=== PATIENT | female | born 1955 ===

== ENCOUNTER → 2023-12-10 09:48 | Outpatient (BNVA) | payer MEDICAID, SELFPAY | PROVIDERS: Referring Provider Nurse Practitioner Family; Visit Provider Nurse Practitioner Family | DX: L82.1 Other seborrheic keratosis (principal); D22.72 Melanocytic nevi of left lower limb, including hip; L82.0 Inflamed seborrheic keratosis; L81.4 Other melanin hyperpigmentation; D22.5 Melanocytic nevi of trunk; Z87.2 Personal history of diseases of the skin and subcutaneous tissue | CPT/HCPCS: 17110; 99203 ==